=== PATIENT | female | born 1950 | race American Indian/Alaskan Native ===

== ENCOUNTER 2016-06-20 22:22 | Observation (INO) | payer MEDICARE ==
[2016-06-20] MEDS ORDERED: Phenylephrine 1% Nasal Spray (15 ml) ONE (22:40)
--- NOTE | 2016-06-20 22:54 | C.PDOC ---
History Of Present Illness 66 year old female presents to the ED with complaints of a epitaxis from the left nostril. She notes she is taking anticoagulation medicines at this time. Patient denies any other complaints at this time. Chief Complaint (Nursing): ENT Problem History Per: Patient Onset/Duration Of Symptoms: Hrs Current Symptoms Are (Timing): Still Present Anticoagulant/Antiplatlet Use?: Yes (anticoagulant) Past Medical History Reviewed: Historical Data, Nursing Documentation, Vital Signs Vital Signs: Last Vital Signs Temp 97.8 F 06/20/16 22:35 Pulse 80 06/21/16 03:03 Resp 14 06/21/16 03:03 BP 143/68 06/21/16 03:03 Pulse Ox 98 06/21/16 03:03 - Medical History PMH: Anemia, Anxiety, CHF, Deep Vein Thrombosis, HTN, Hypercholesterolemia Family History: States: Unknown Family Hx - Social History Hx Alcohol Use: No Hx Substance Use: No - Immunization History Hx Tetanus Toxoid Vaccination: No Hx Influenza Vaccination: Yes Hx Pneumococcal Vaccination: Yes Review Of Systems Constitutional: Negative for: Fever, Chills ENT: Positive for: Other (epitaxis left nostril ) Gastrointestinal: Negative for: Nausea, Vomiting, Abdominal Pain, Diarrhea Physical Exam - Physical Exam Appears: Non-toxic, No Acute Distress Skin: Warm, Dry Head: Normacephalic Eye(s): bilateral: PERRL, EOMI Ear(s): Bilateral: Normal Nose: Epistaxis (left nostril ) Neck: Normal ROM, Supple Chest: Symmetrical, No Deformity Cardiovascular: Rhythm Regular, No Murmur Respiratory: No Accessory Muscle Use, No Rales, No Rhonchi, No Stridor, No Wheezing Gastrointestinal/Abdominal: Soft, No Tenderness, No Distention, No Guarding, No Rebound, No Hernia Extremity: Normal ROM, No Tenderness Neurological/Psych: Oriented x3 ED Course And Treatment - Laboratory Results Result Diagrams: 06/20/16 22:55 06/20/16 22:55 O2 Sat by Pulse Oximetry: 100 Progress Note: Patient was treated with rhino nasal spray. IV fluids, afrin 0.05 %, and potassium chloride IVPB administered. Right leg dressing applied. Disposition Discussed With .: Tommy Cruz Doctor Will See Patient In The: Hospital Counseled Patient/Family Regarding: Diagnosis - Disposition Referrals: Tommy Cruz MD [Primary Care Provider] - Disposition: HOSPITALIZED Disposition Time: 02:31 Condition: STABLE - POA Present On Arrival: None - Clinical Impression Clinical Impression: Recurrent epistaxis - Scribe Statement The provider has reviewed the documentation as recorded by the Dulce Mariaibjasmine Whitten All medical record entries made by the Dulce Mariaibjasmine were at my direction and personally dictated by me. I have reviewed the chart and agree that the record accurately reflects my personal performance of the history, physical exam, medical decision making, and the department course for this patient. I have also personally directed, reviewed, and agree with the discharge instructions and disposition.
[2016-06-20 22:58] LABS: BASO # 0.1 K/uL (0.0-0.2); BASO % 0.6 % (0.0-2.0); EOS # 0.2 K/uL (0.0-0.7); EOS % 2.5 % (0.0-4.0); HEMATOCRIT 30.3 % (34.0-47.0); LYMPH # 2.2 K/uL (1.0-4.3); LYMPH % 25.2 % (20.0-40.0); MEAN CELL VOLUME 92.3 fL (81.0-99.0); MEAN CORPUSCULAR HEMOGLOBIN 30.1 pg (27.0-31.0); MEAN CORPUSCULAR HGB CONC 32.7 g/dL (33.0-37.0); MEAN PLATELET VOLUME 9.8 fL (7.2-11.7); MONO # 0.9 K/uL (0.0-0.8); MONO % 9.9 % (0.0-10.0); RED CELL DISTRIBUTION WIDTH 15.8 % (11.5-14.5); WHITE BLOOD COUNT 8.7 K/uL (4.8-10.8)
[2016-06-20 23:06] LABS: CHLORIDE 93 mmol/L (98-107)
[2016-06-20 23:07] LABS: POTASSIUM 2.7 mmol/L (3.6-5.2); SODIUM 135 mmol/L (132-148)
[2016-06-20 23:09] LABS: ALKALINE PHOSPHATASE 91 U/L (38-126); ALT/SGPT 15 U/L (9-52); AST/SGOT 17 U/L (14-36); BILIRUBIN,TOTAL 0.5 mg/dL (0.2-1.3); BLOOD UREA NITROGEN 24 mg/dL (7-17); CARBON DIOXIDE 28 mmol/L (22-30); GFR AFRICAN-AMERICAN > 60; TOTAL PROTEIN 7.8 g/dL (6.3-8.3)
[2016-06-20 23:10] LABS: CALCIUM 8.7 mg/dl (8.6-10.4); GLUCOSE,RANDOM 124 mg/dL (65-105)
[2016-06-20 23:14] LABS: INR 1.2
[2016-06-20] MEDS ORDERED: Potassium Chloride 10 mEq 100 ML IVPB ONE (23:30)
[2016-06-21] MEDS ORDERED: Oxymetazoline 0.05% Nasal Spray (30 ml) NS ONE (01:53)
[2016-06-21] MEDS ORDERED: Oxycodone/Acetaminophen 5/325 mg Tab PO PRN (04:20)
[2016-06-21] MEDS ORDERED: Magnesium Hydroxide Susp 30 ml UD PO PRN (04:20)
[2016-06-21] MEDS ORDERED: ACETAMINOPHEN PO PRN ×2 (04:20→13:17)
[2016-06-21] MEDS ORDERED: guaiFENesin 100 mg/5 ml Syrup UD PO PRN (04:20)
[2016-06-21] MEDS ORDERED: Potassium Chloride 10 mEq 100 ML IVPB ONE (04:36)
[2016-06-21 08:29] VITALS: RESP 20; O2SAT 99
[2016-06-21] MEDS ORDERED: Home Med 1 UNIT (Atorvastatin Calcium [Atorvastatin Calcium] 10 MG) PO SCH (10:00)
[2016-06-21] MEDS ORDERED: Pantoprazole 40 mg EC Tab PO SCH (10:00)
[2016-06-21] MEDS ORDERED: Home Med 1 UNIT (Ferrous Sulfate [Iron] 325 MG) PO SCH (10:00)
[2016-06-21] MEDS ORDERED: Collagenase 250 Units/gm Ointment(30 gm) TOP SCH (10:00)
[2016-06-21] MEDS ORDERED: [UNRECOGNIZED DRUG - OTHER] TP SCH (10:00)
[2016-06-21] MEDS ORDERED: PETROLATUM TP SCH (10:00)
[2016-06-21] MEDS ORDERED: Magnesium Oxide 400 mg Tab UD PO SCH (10:00)
[2016-06-21 10:58] VITALS: BP 152/91
[2016-06-21 11:43] LABS: CHLORIDE 95 mmol/L (98-107); POTASSIUM 2.8 mmol/L (3.6-5.2); SODIUM 135 mmol/L (132-148)
[2016-06-21 11:45] LABS: GFR AFRICAN-AMERICAN > 60
[2016-06-21 11:46] LABS: BLOOD UREA NITROGEN 15 mg/dL (7-17); CALCIUM 8.4 mg/dl (8.6-10.4); CARBON DIOXIDE 27 mmol/L (22-30); GLUCOSE,RANDOM 150 mg/dL (65-105)
[2016-06-21 11:47] LABS: MAGNESIUM 1.7 mg/dL (1.6-2.3)
[2016-06-21] MEDS ORDERED: Potassium Chloride 20 mEq ER Tab PO ONE (12:45)
[2016-06-21] MEDS: Potassium Chloride 20 mEq 100 ML IVPB SCH ×2 (12:54→14:21)
[2016-06-21 12:57] VITALS: PULSE 85; TEMP 97.7
--- NOTE | 2016-06-21 12:58 | PCM.HF ---
Heart Failure Core Measure - Heart Failure Left Ventricular Function to be assessed after discharge: Yes BRITTANY Inhibitor Prescribed: Yes Beta-Chloe Prescribed: Carvedilol Angiotensin II Receptor Chloe Prescribed: No Contraindication/Reason for not providing: on brittany AnticoagulationTherapy for Atrial Fibrillation/Atrialflutter: Yes Aldosterone Antagonist Prescribed: No Contraindication/Reason for not providing: BP is controlled Hydralazine Nitrate Prescribed: No Contraindication/Reason for not providing: BP is controlled Implantable Cardioverter Defibrillator Therapy: No Contraindication/Reason for not providing: BP controlled, HR controlled Cardiac Resynchronization Therapy Prescribed: No Contraindication/Reason for not providing: not indicated - Follow up Will be discharged to: [facility] ([facility])
[2016-06-21] MEDS ORDERED: Amoxicillin-Clav 875-125 mg Tab PO SCH (13:00)
[2016-06-21] MEDS ORDERED: cefTRIAXone IV 1 gm in Dextros 50 ML IVPB SCH (13:00)
--- NOTE | 2016-06-21 14:03 | CON ---
DATE: 06/21/2016 REASON FOR CONSULTATION: Epistaxis. HISTORY OF PRESENT ILLNESS: This is a 66-year-old female with a multiple week history of recurrent e pistaxis on the left, mild to moderate in intensity. The patient presented to the Emergency Room yes terday with these symptoms. Had a nasal pack placed on the left and she has had no bleeding since. PAST MEDICAL HISTORY: As noted in the chart by me. MEDICATIONS: As noted in the chart by me and includes blood thinners. PHYSICAL EXAMINATION: HEAD: Atraumatic, normocephalic. FACE: Good facial movements bilaterally. CONSTITUTIONAL: Well-developed, well-nourished. COMMUNICATION: Communicates very appropriately. EXTERNAL NOSE AND EARS: No masses, no lesions, no erythema, no edema. INTERNAL NOSE: Pack noted on the left. No bleeding. Deviated septum. ORAL CAVITY, OROPHARYNX: No bloody postnasal drip. No masses, no lesions, no erythema, no edema. LIPS AND GUMS: No masses, no lesions, no erythema, no edema. NECK: Supple. THYROID: No thyromegaly, no goiter. LYMPH NODES: No lymphadenopathy of the neck. ASSESSMENT: 1. Epistaxis, left. 2. Deviated septum. PLAN: Continue nasal pack. May send patient home with nasal pack. The patient needs to be on antib iotics and being sent home as long as she has the nasal pack in and she should follow up in the offic e on , in 3 days, in order to have the nasal pack removed. If possible, patient should come off of the blood thinners if it is okay by her medical doctors to decrease the chance of bleeding onc e the pack comes out. If the internal medicine doctor feels that this patient needs to stay on the b lood thinners, then the patient should stay on the blood thinners. Rachid Coyne MD cc: [id number] TT: 06/21/2016 14:02:12 Confirmation # [id number] Dictation # [id number]
[2016-06-21] MEDS ORDERED: Potassium Chloride 20 mEq ER Tab PO STA (15:27)
--- NOTE | 2016-06-21 17:00 | CP.PCM.PN ---
Subjective - Date & Time of Evaluation Date of Evaluation: 06/21/16 Time of Evaluation: 11:00 - Subjective Subjective: Alert, orientedx3, denies sob or chest pains, no active bleedind, NAD. Objective - Vital Signs/Intake and Output Vital Signs (last 24 hours): Temp Pulse Resp BP Pulse Ox 97.7 F 87 20 152/91 H 99 06/21/16 08:13 06/21/16 08:35 06/21/16 08:35 06/21/16 13:28 06/21/16 08:35 Intake and Output: 06/21/16 06/21/16 06:59 18:59 Intake Total 120 Balance 120 - Medications Medications: Current Medications Alprazolam (Xanax) 0.5 mg PO DAILY PRN PRN Reason: Anxiety Amoxicillin/Clavulanate Potassium (Augmentin 875 Mg-125 Mg Tab) 1 tab PO Q12H [facility] Last Admin: 06/21/16 13:29 Dose: 1 tab Bisacodyl (Dulcolax) 10 mg UT DAILY PRN PRN Reason: Constipation Carvedilol (Coreg) 12.5 mg PO BID [facility] Collagenase (Santyl) 0 gm TOP DAILY [facility] Last Admin: 06/21/16 11:34 Dose: Not Given Diphenhydramine HCl (Benadryl) 25 mg PO Q6H PRN PRN Reason: Itching / Pruritus Docusate Sodium (Colace) 100 mg PO DAILY [facility] Last Admin: 06/21/16 10:55 Dose: 100 mg Ferrous Sulfate (Feosol) 325 mg PO DAILY [facility] Furosemide (Lasix) 40 mg PO DAILY [facility] Last Admin: 06/21/16 10:57 Dose: 40 mg Guaifenesin (Robitussin) 100 mg PO Q6H PRN PRN Reason: Cough Home Med (Acetaminophen [Tylenol Extra Strength]) 1 tab PO Q6H PRN PRN Reason: Pain, moderate (4-7) Home Med (Bismuth Tribromoph/Petrolatum [Xeroflo Gauze Dressing]) 1 each TP DAILY [facility] Magnesium Hydroxide (Milk Of Magnesia) 30 ml PO HS PRN PRN Reason: Constipation Magnesium Oxide (Mag-Ox) 400 mg PO DAILY [facility] Last Admin: 06/21/16 11:00 Dose: 400 mg Oxycodone/Acetaminophen (Percocet 5/325 Mg Tab) 1 tab PO Q6H PRN PRN Reason: Pain, moderate (4-7) Stop: 06/24/16 04:21 Pantoprazole Sodium (Protonix Ec Tab) 40 mg PO DAILY [facility] Last Admin: 06/21/16 10:55 Dose: 40 mg Potassium Chloride (K-Dur 20 Meq Er Tab) 20 meq PO DAILY [facility] Rosuvastatin Calcium (Crestor) 5 mg PO HS [facility] Zolpidem Tartrate (Ambien) 5 mg PO HS PRN PRN Reason: Sleep - Labs Labs: 06/21/16 11:17 PT 13.6 SECONDS (9.7-12.2) H 06/20/16 22:55 INR 1.2 06/20/16 22:55 APTT 31 SECONDS (21-34) 06/20/16 22:55 Assessment and Plan - Assessment and Plan (Free Text) Assessment: Patient is seen and examined. No active bleeding, nasal packing in place. Cleared by DR Coyne for discharge on po antibiotics. Advised to hold the blood thinners for now. D/[facility]
[2016-06-22] MEDS ORDERED: PETROLATUM TP SCH (10:00)
[2016-06-22] MEDS ORDERED: [UNRECOGNIZED DRUG - OTHER] TP SCH (10:00)
[2016-06-22] MEDS ORDERED: Potassium Chloride 20 mEq ER Tab PO SCH (10:00)
== END 2016-06-21 16:45 ==
LOC: C.ER 22:22 → SUPCPDRO 22:22 → C.3T 06-21 03:33
PROVIDERS: ADMIT Internal Medicine Nephrology; ATTEND Internal Medicine Nephrology
DX: R04.0 Epistaxis (principal); D68.32 Hemorrhagic disorder due to extrinsic circulating anticoagulants; T45.525A Adverse effect of antithrombotic drugs, initial encounter; I16.9 Hypertensive crisis, unspecified; E78.00 Pure hypercholesterolemia, unspecified
CPT/HCPCS: 30901; 36415; 80048; 80053; 82948; 83735; 85025; 85610; 85730; 99283; G0378; J3480